=== PATIENT | female | born 2000 | race African-American/Black ===

== ENCOUNTER 2020-07-20 18:54 | Emergency (ER) | payer OTHER, SELFPAY ==
--- NOTE | ~2020-07-20 | XR_ITS ---
EXAMINATION: XR chest 2V EXAM DATE: 07/20/2020 21:23 INDICATION: Shortness of breath, cough, chest tightness. . TECHNIQUE: Frontal and lateral projections of the chest obtained and reviewed. There is no prior lewis dy for comparison. FINDINGS: The lungs are clear. There are no pleural effusions. The cardiomediastinal silhouette is within normal limits. There is no pneumothorax suspected. The bones and soft tissues are unremarkab le. IMPRESSION: No acute cardiopulmonary findings. Reviewed, dictated and finalized at location A.
[2020-07-20 19:00] VITALS: BP 141/73; PULSE 89; RESP 18; TEMP 36.1; O2SAT 99
[2020-07-20 20:15] VITALS: BP 114/67; PULSE 50; RESP 16; O2SAT 100
--- NOTE | 2020-07-20 20:25 | ECG_ITS ---
Measurements Intervals [place] Rate: 53 P: 63 FL: 181 QRS: 48 QRSD: 72 T: 41 QT: 388 QTc: 366 Interpretive Statements SINUS BRADYCARDIA WITH SINUS ARRHYTHMIA LOW QRS VOLTAGE IN PRECORDIAL LEADS BASELINE ARTIFACT- I, II, III, AVR, AVL, AVF, V1 BORDERLINE ECG Electronically Signed On 07-21-2020 6:54:33 CDT by Rajiv Dietrich D.O.
[2020-07-20] MEDS: IPRATROPIUM BR 0.02% INH SOLN 0.5 MG/2.5 ML VIAL INHALATION (20:39)
[2020-07-20] MEDS: ALBUTEROL SULFATE NEB 2.5 MG/0.5 ML INH 5 MG INHALATION (20:39)
--- NOTE | 2020-07-20 20:48 | ED.ASTHMA ---
HPI - Asthma General Chief Complaint: Asthma Stated Complaint: SOB, hx of asthma, 17 wks preg Time Seen by Provider: 07/20/20 20:16 Source: patient Mode of arrival: ambulatory Limitations: no limitations History of Present Illness HPI Narrative: This patient is a 19 year old female approximately 17 weeks GA with history of asthma who presents for evaluation of worsening asthma . She reports over the past 2 weeks she has worsening sinus symptoms. She reports nasal congestion and drainage. She reports she occasionaly spits up green sputum. She also reports mild cough. She states she has been using her ProAir inhaler and nebulized multiple times daily over past couple days. She denies chest pain but reports she feels sob. She denies leg swelling or calf pain. She denies fever, chills, sore throat, loss of taste or smell. She denies nausea , vomiting or diarrhea. She reports she just moved here from [place] so she does not have an OBGYN. She reports having ultrasound at beginning of showing IUP. She denies recent abdominal pain or vaginal bleedding. Related Data Home Medications Medication Instructions Recorded Confirmed albuterol sulfate [ProAir HFA] INHALATION PRN 07/20/20 diphenhydramine HCl [Benadryl DAILY 07/20/20 Allergy] [id number] pkg PO DAILY 07/20/20 [One Daily ] Allergies Allergy/AdvReac Type Severity Reaction Status Date / Time No Known Allergies Allergy Verified 07/20/20 19:06 Review of Systems Review of Systems: All systems reviewed & are unremarkable except as noted in HPI and below Constitutional: Constitutional: Denies chills and Denies fever(s) Eyes: Eyes: Reports no additional eye complaints ENT: Reports nasal congestion and Reports nasal discharge Cardiovascular: Cardiovascular: Denies chest pain Respiratory: Respiratory: Reports cough and Reports dyspnea Gastrointestinal: Gastrointestinal: Denies abdominal pain, Denies diarrhea, Denies nausea and Denies vomiting [facility] Past Medical History Medical History (Updated 07/21/20 @ 00:00 by Background Daemon) Asthma Social History Social History Gender identity (if verbalized by the patient): Female Exam Const: General: no acute distress and alert Orientation/consciousness: patient oriented x3 HENMT: Head: normocephalic and atraumatic Ears: TM's normal bilaterally General nose exam: Abnormal mucous membranes and turbinates present erythematous, no epistaxis and Other nasal findings present (no sinus tenderness) Face and sinus: sinuses nontender and face symmetric Mouth: Yes Normal oral and palatal mucosa present, Yes lip normal, Yes oropharynx normal and Yes moist mucous membranes Throat: posterior oropharynx normal, tonsils normal and uvula midline Eyes: Pupils: Equal, round and reactive pupils present EOM: EOMs intact bilaterally Chest: Chest palpation & inspection: normal inspection of the chest Resp: Effort & Inspection: normal respiratory effort, not labored, not tachypneic and no use of accessory muscles Auscultation: clear to auscultation bilaterally, no wheezes and diminished lung sounds Cardio: Rate: regular rate Rhythm: regular rhythm Heart sounds: no murmurs GI: GI Palp: Yes Soft to palpation, No Tenderness to palpation present (GI) and No Guarding due to palpation present (GI) : General: Yes no CVA tenderness Skin: General skin exam: normal color Lesions: no lesions Neuro: General: patient oriented x3, moves all extremities and No CN's II-XI intact bilaterally Extrem: General: normal to inspection and no pedal edema Other: no calf tenderness Psych: Mental Status: mental status grossly normal Affect: normal affect Course Reevaluation(s) Reevaluation #1: Patient states she feels much better and she denies sob. She has not chest pain. I think it is unlikely PE. Date: 07/20/20 Time: 22:16 Vital Signs Vital signs: Vital Signs
[2020-07-20 20:50] VITALS: PULSE 62; RESP 18
[2020-07-20 21:04] VITALS: PULSE 56; RESP 19
[2020-07-20 22:30] VITALS: BP 122/72; PULSE 89; RESP 19; O2SAT 100
== END 2020-07-20 22:30 | disposition home or self-care (01) ==
PROVIDERS: Emergency Provider General Practice
DX: O99.512 Diseases of the respiratory system complicating pregnancy, second trimester (principal); J45.901 Unspecified asthma with (acute) exacerbation; J06.9 Acute upper respiratory infection, unspecified; Z3A.17 17 weeks gestation of pregnancy; R00.1 Bradycardia, unspecified; R94.31 Abnormal electrocardiogram [ECG] [EKG]
CPT/HCPCS: 71046; 93005; 94640; 99283